=== PATIENT | female | born 1990 | race African-American/Black ===

== ENCOUNTER 2016-07-31 11:23 | Emergency (ER) | payer BC ==
[~2016-07-31] VITALS: Ht 165.1 cm; Wt 61.0 kg
[~2016-07-31 11:23] MED LIST: ALBUTEROL SULFATE
[2016-07-31] MEDS ORDERED: SODIUM CHLORIDE 0.9% 1,000 ML IV ONE (12:09)
[2016-07-31] MEDS ORDERED: CEFTRIAXONE 2 G PREMIX 50 ML IV ONE (12:15)
[2016-07-31] MEDS ORDERED: SODIUM CHLORIDE 0.9% 1000ML BAG (SEPSIS BOLUS) IV ONE (12:15)
[2016-07-31] MEDS ORDERED: ACETAMINOPHEN 500MG TABLET PO ONE (12:15)
[2016-07-31 12:40] LABS: HEMATOCRIT. 41.2 % (36.0-48.0); HEMOGLOBIN. 14.1 g/dL (12.0-16.0); MEAN CORPUSCULAR HEMOGLOBIN 31.5 pg (28.0-32.0); MEAN CORPUSCULAR HGB CONC 34.2 g/dL (31.0-37.0); MEAN CORPUSCULAR VOLUME 92.1 fL (81.0-99.0); MEAN PLATELET VOLUME 7.4 fl (7.4-10.4); PLATELET 174 x1000/uL (130-400); RED BLOOD CELL COUNT 4.47 mill/uL (4.2-5.4); RED CELL DISTRIBUTION WIDTH 12.8 % (11.6-14.6); WHITE BLOOD COUNT 18.3 x1000/uL (4.5-11.0)
[2016-07-31 12:45] LABS: CHLORIDE 100 mEq/L (98-107); DIFFERENTIAL COMMENT 1; INDEX HEMOLYSI 1 (1-3); INDEX ICTERIC 1 (1-4); INDEX LIPEMIC 1 (1-3)
[2016-07-31] MEDS ORDERED: MORPHINE SULFATE 4 MG/ML CPJ (NOT FOR IM USE) IV ONE (12:45)
[2016-07-31] MEDS ORDERED: ONDANSETRON HCL 4MG/2ML VIAL IM ONE (12:45)
[2016-07-31 12:47] LABS: INR 1.3; PROTHROMBIN TIME 13.1 sec
[2016-07-31 12:50] LABS: HCG SCREEN NEGATIVE
[2016-07-31 12:53] LABS: ALANINE AMINOTRANSFERASE 21 IU/L (13-61); ALBUMIN 3.5 g/dL (3.4-5.0); ANION GAP 13; CALCIUM 8.5 mg/dL (8.5-10.1); CARBON DIOXIDE 27 mEq/L (21-32); UREA NITROGEN BLOOD 9 mg/dL (7-21); eGFR > 60 mL/min (>60)
[2016-07-31 13:03] LABS: CLARITY URINE CLOUDY (CLEAR); COLOR URINE DARK YELLOW (YELLOW); GLUCOSE URINE NEGATIVE (NEGATIVE); KETONES URINE 1+ (NEGATIVE); LEUKOCYTE ESTERASE URINE 2+ (NEGATIVE); NITRITE URINE POSITIVE (NEGATIVE); OCCULT BLOOD URINE 3+ (NEGATIVE); PH URINE 5.5 (4.5-8.0); PROTEIN URINE 1+ (NEGATIVE); SPECIFIC GRAVITY URINE 1.018 (1.005-1.030)
[2016-07-31 13:20] LABS: MUCUS URINE 2+ /lpf (< = 2+); SQUAMOUS EPITHELIAL CELL URINE 2+ /lpf (RARE/1+); WBC URINE TNTC /hpf (0-2)
[2016-07-31 13:21] LABS: BACTERIA URINE 3+; RBC URINE NONE SEEN /hpf (0-2)
[2016-07-31 13:49] LABS: PLATELET ESTIMATE NORMAL
[2016-07-31] MEDS ORDERED: LEVOFLOXACIN 500MG TABLET PO ONE (15:00)
[2016-07-31] MEDS ORDERED: LEVOFLOXACIN 250MG TABLET PO ONE (15:00)
[2016-07-31 16:03] VITALS: BP 102/53
== END 2016-07-31 16:41 | disposition home or self-care (01) ==
LOC: ER 11:38
DX: N12 Tubulo-interstitial nephritis, not specified as acute or chronic (principal); R42 Dizziness and giddiness; J45.909 Unspecified asthma, uncomplicated
CPT/HCPCS: 36415; 74176; 80053; 81001; 81025; 83605; 84703; 85025; 85610; 87040; 87077; 87086; 87186; 93005; 96365; 96372; 96375; 99285; J0696; J2270; J2405; J7030; Z7610